=== PATIENT | male | born 1955 | race Caucasian/White ===

== ENCOUNTER 2019-10-23 15:01 | Outpatient (CLI) | payer BC, SELFPAY ==
--- NOTE | 2019-10-25 16:36 | WPDPFTINT ---
PFT Interpretation PFT Interpretation: DOS: 10/13/2019 REQUESTING: Tobias Merrill REASON FOR TESTING: COPD PULMONARY FUNCTION TESTS The patient difficulty getting acceptable and reproducible plethsmography results despite good coaching and effort Spirometry: Severely decreased FEV1 26% predicted, 0.76 L. FVC moderately reduced 61%. Decreased FEV1% consistent with airflow obstruction. There is an excellent response to bronchodilator with a 28% increase in FEV1 which was greater than 200 ml. Lung volumes: TLC 249% severe hyperinflation. Residual volume severely increased 553%. Airway resistance increased 502%. Diffusion: DLCO moderately decreased 43%.. Flow volume loop: Extreme scooping of the expiratory limb IMPRESSION: This pattern is consistent with severe emphysema with good response to bronchodilator. Kyra Reed MD
== END 2019-10-23 15:02 | disposition home or self-care (01) ==
PROVIDERS: PCP Family Medicine; Visit Provider Internal Medicine Critical Care Medicine
DX: J44.9 Chronic obstructive pulmonary disease, unspecified (principal); R94.2 Abnormal results of pulmonary function studies
CPT/HCPCS: 94060; 94726; 94729

== ENCOUNTER 2020-07-04 15:00 | Outpatient (CLI) | payer BC, SELFPAY ==
--- NOTE | ~2020-07-04 | CT_ITS ---
EXAMINATION:CT diagnostic chest wo con DATE: 07/04/2020 15:30 INDICATION: Solitary pulmonary nodule. TECHNIQUE: Computed tomography (CT) of the chest was performed without intravenous contrast. Automate d exposure control and iterative reconstruction technique were employed. The dose-length product (DLP ) was 95.38 mGy-cm. COMPARISON: None. FINDINGS: There is severe emphysema. There is mild atelectasis bilaterally. There is a 6 mm nodule at left major fissure. There is a 4 mm nodule in right lower lobe. There is a 5 mm nodule in right uppe r lobe. No pleural effusion. The heart size is normal. There are coronary artery calcifications. No p ericardial effusion. There are no pathologically enlarged lymph nodes. There is mild bilateral gyneco mastia. There is a 1.4 cm mass in right adrenal gland measuring low-attenuation, consistent with an a denoma. There is mild thoracic spondylosis. IMPRESSION: 1. Pulmonary nodules measuring up to 6 mm, likely benign. 2. Severe emphysema. Reviewed, dictated and finalized at location A.
== END 2020-07-04 15:01 | disposition home or self-care (01) ==
PROVIDERS: PCP Family Medicine; Visit Provider Internal Medicine Critical Care Medicine
DX: R91.8 Other nonspecific abnormal finding of lung field (principal); J43.9 Emphysema, unspecified
CPT/HCPCS: 71250

== ENCOUNTER 2021-07-05 09:22 | Outpatient (CLI) | payer BC, SELFPAY ==
--- NOTE | ~2021-07-05 | CT_ITS ---
EXAMINATION: CT diagnostic chest wo con DATE: 07/05/2021 09:40 INDICATION: Solitary pulmonary nodule TECHNIQUE: Computed tomography (CT) of the chest was performed without intravenous contrast. The dose -length product (DLP) was 110.44 mGy-cm. Automated exposure control and iterative reconstruction tech [employer] were employed. COMPARISON: 07/04/2020 FINDINGS: There is severe emphysema. A previously described 4 mm nodule of the right lower lobe is no longer evident, consistent with resolved infection or inflammation. There is a stable 6 mm fissural nodule on the left. The lungs are free of acute opacities. There is no pleural effusion or pneumothor ax. No pathologically enlarged thoracic lymph nodes are identified. The heart size is normal. There i s calcified coronary artery atherosclerosis. A stable 1.4 cm low-attenuation mass of the right adrena l gland is consistent with an adenoma. There is mild thoracic spondylosis. IMPRESSION: 1. Resolved right lower lobe nodule, consistent with resolving infection/inflammation. No suspicious pulmonary nodule identified. 2. Severe emphysema. Reviewed, dictated and finalized at location A. IMPRESSION: 1. Resolved right lower lobe nodule, consistent with resolving infection/inflam mation. No suspicious pulmonary nodule identified. 2. Severe emphysema.
== END 2021-07-05 09:23 | disposition home or self-care (01) ==
PROVIDERS: PCP Family Medicine; Visit Provider Physician Assistant
DX: R91.1 Solitary pulmonary nodule (principal); J43.9 Emphysema, unspecified
CPT/HCPCS: 71250

== ENCOUNTER 2022-07-06 12:47 | Outpatient (CLI) | payer BC, SELFPAY ==
--- NOTE | ~2022-07-06 | CT_ITS ---
CT Scan of the Chest without Contrast: Clinical Indication: Lung cancer screening, personal history of nicotine dependence Technique: Contiguous sections were acquired throughout the chest without intravenous contrast. Dose reduction technique was used on this scan by utilizing automated exposure control and iterative recon struction technique. The dose-length product (DLP) was 151.90 mGy-cm. COMPARISON: 07/05/2021 and 07/04/2020 Findings: There is no evidence of any significant mediastinal, hilar or axillary lymphadenopathy. The mediastin al soft tissues appear normal. There is no evidence of pleural or pericardial effusion. The lungs are clear. No pulmonary nodules or infiltrates are noted. Severe pulmonary emphysema noted. Images through the upper abdomen reveal no abnormalities. Impression: Lung-RADS 1: Negative. 12 month follow-up screening CT advised. Severe emphysema. Reviewed, dictated and finalized at [facility]. Impression: Lung-RADS 1: Negative. 12 month follow-up screening CT advised. Severe emphysema.
== END 2022-07-06 12:48 | disposition home or self-care (01) ==
PROVIDERS: PCP Family Medicine; Visit Provider Physician Assistant
DX: Z12.2 Encounter for screening for malignant neoplasm of respiratory organs (principal); Z87.891 Personal history of nicotine dependence
CPT/HCPCS: 71271

== ENCOUNTER 2023-07-08 10:54 | Outpatient (CLI) | payer BC, SELFPAY ==
--- NOTE | ~2023-07-08 | CT_ITS ---
CT Scan of the Chest without Contrast: Clinical Indication: Lung cancer showing, nicotine dependence Technique: Contiguous sections were acquired throughout the chest without intravenous contrast. Dose reduction technique was used on this scan by utilizing automated exposure control and iterative recon struction technique. The dose-length product (DLP) was 152.50 mGy-cm. Findings: There is no evidence of any significant mediastinal, hilar or axillary lymphadenopathy. Coronary wilner ry calcifications are present. There is no evidence of pleural or pericardial effusion. 4 mm peripheral nodule noted in the left lower lobe. Probable 5 mm left upper lobe pulmonary nodule. Advanced emphysema noted. Images through the upper abdomen reveal no abnormalities. Impression: Lung RADS 2: Benign appearance. 12 month follow-up screening CT advised. Advanced emphysema. Reviewed, dictated and finalized at [facility]. Impression: Lung RADS 2: Benign appearance. 12 month follow-up screening CT advised. Advanced emphysema.
== END 2023-07-08 10:55 | disposition home or self-care (01) ==
LOC: ANHIMG 10:55
PROVIDERS: PCP Family Medicine; Visit Provider Physician Assistant
DX: Z12.2 Encounter for screening for malignant neoplasm of respiratory organs (principal); Z87.891 Personal history of nicotine dependence; J43.9 Emphysema, unspecified
CPT/HCPCS: 71271

== ENCOUNTER 2024-07-09 08:09 | Outpatient (CLI) | payer MEDICARE, SELFPAY ==
--- NOTE | ~2024-07-09 | CT_ITS ---
CT Scan of the Chest without Contrast: Clinical Indication: Lung cancer screening, nicotine dependence Technique: Contiguous sections were acquired throughout the chest without intravenous contrast. Dose reduction technique was used on this scan by utilizing automated exposure control and iterative recon struction technique. The dose-length product (DLP) was 133.23 mGy-cm. COMPARISON: 07/08/2023 Findings: There is no evidence of any significant mediastinal, hilar or axillary lymphadenopathy. The mediastin al soft tissues appear normal. There is no evidence of pleural or pericardial effusion. There is advanced emphysema. Stable 4 mm peripheral nodule left lower lobe (axial image 78). Stable 3 mm of the upper lobe nodule (axial image 53). Images through the upper abdomen reveal stable right adrenal adenoma. Impression: Lung RADS 2: Benign appearance. [address] advised. Advanced emphysema. Reviewed, dictated and finalized at [facility]. Impression: Lung RADS 2: Benign appearance. [address] advised. Advanced emphysema.
--- OUTSIDE RECORDS SUMMARY | 2024-07-09 08:18 | XMS_ITS | Clinical Summary ---
Author Organization [facility] [address] [place] [address] [place] [id number] Care Team Providers Care Superintendent Maintenance Name Role Phone Nikhil Talley MD Primary Care Provider [phone] Allergies No known active allergies Medications fluticasone propionate (FLONASE) 50 mcg/actuation nasal spray Administer 2 sprays into each nostril daily 3 each 1 1 Active aspirin 81 mg enteric coated tablet Take 1 tablet (81 mg total) by mouth daily Active Breztri Aerosphere 160-9-4.8 mcg/actuation HFA aerosol inhaler 2 puffs 2 (two) times a day 2 Active lisinopril-hydroC HLOROthiazide (ZESTORETIC) 20-25 mg per tabletIndications :Essential hypertension Take 1 tablet by mouth daily 90 tablet 3 2 Active albuterol HFA (PROVENTIL HFA,VENTOLIN HFA,PROAIR HFA) 90 mcg/actuation inhalerIndication s:Centrilobular emphysema (HCC) Inhale 2 puffs every 4 (four) hours as needed for shortness of breath 3 each 4 3 Active ipratropium (ATROVENT) 42 mcg (0.06 %) nasal spray SPRAY 2 SPRAYS IN EACH NOSTRIL THREE TIMES A DAY NEEDED FOR ALLERGY SYMPTOMS FOR 1 MONTH 3 Active tadalafiL (CIALIS) 5 mg tabletIndications :Elevated PSA Take 1 tablet (5 mg total) by mouth daily 90 tablet 1 3 Active Active Problems Problem Noted Date Diagnosed Date Chronic rhinitis 06/05/2023 Purulent postnasal drainage 06/05/2023 History of right mastoidectomy 06/05/2023 Elevated PSA 04/22/2022 COLE (generalized anxiety disorder) 03/13/2022 COVID-19 03/28/2021 Mixed conductive and sensori neural hearing loss of right ear with restricted hearing of left ear 07/21/2020 Chronic obstructive pulmonary disease 05/19/2020 Essential hypertension 05/19/2020 Chronic allergic rhinitis due to pollen 09/24/19 18 Conductive hearing loss, bilateral 09/23/2017 Immunizations Immunization Administration Dates Next Due Influenza, Quadrivalent, Hig h Dose, Preservative Free, Intrr 01/02/2022 Influenza, Quadrivalent, Spl it, Preservative Free, Intramuscular 05/16/2020 Pfizer SARS-CoV-2 Monovalent Vaccination (12+ Yrs) PURPLE 07/13/2021 Tdap 09/16/2015 Surgical History Surgery Date Site/Laterality Comments EAR SURGERY MASTOIDECTOMY Medical History Medical History Date Comments Hypertension COPD (chronic obstructive pulmonary disease) (HC C) Mastoiditis Covid-19 Family History Medical History Relation Name Comments No Known Problems Daughter 1 No Known Problems Daughter 2 Cancer Father Hypertension Father Hypertension Mother No Known Problems Son 1 No Known Problems Son 2 Relation Name Status Comments Brother Alive Daughter 1 Alive Daughter 2 Alive Father Mother Sister 1 Alive Sister 2 Alive Son 1 Alive Son 2 Alive Social History Tobacco Use Types Packs/Day Years Used Date Smoking Tobacco: Former Cigarettes Q uit: 09/08/2015 Smokeless Tobacco: Never Tobacco Cessation:Counseling Given: Not Answered AUDIT-C Answer Date Recorded Q1: How often do you have a drink containing alc ohol? Never 02/04/2024 Average Number of Drinks Not on file 024 Frequency of Binge Drinking Not on file 01/23 PHQ-2 Answer Date Recorded PHQ-2 Total Score (If total score is 3 or more points, staff should administer the PHQ-9) 0 03/13/2022 Sex and Gender Information Value Date Recorded Sex Assigned at Not on file Legal Sex Male 12:35 AM DELIVERY CREW WORKER Gender Identity Male 12/18/2023 11:56 AM CDT Sexual Orientation Straight 12/18/2023 11 :56 AM CDT Obstetrics History Last Filed Vital Signs Vital Sign Reading Time Taken Comments Blood Pressure 112/76 02/04/2024 1:54 PM DELIVERY CREW WORKER Pulse 86 02/04/2024 1:54 PM DELIVERY CREW WORKER Temperature 36.5 C (97.7 F) 02/04/2024 1:54 PM DELIVERY CREW WORKER Respiratory Rate 18 06/05/2023 1:00 PM CDT Oxygen Saturation 95% 04/10/2022 5:09 PM DELIVERY CREW WORKER Inhaled Oxygen Concentration - - Weight 81.6 kg (180 lb) 02/04/2024 1:54 PM DELIVERY CREW WORKER Height 170.2 cm (5' 7 ) 02/04/2024 1:54 PM DELIVERY CREW WORKER Body Mass Index 28.19 02/04/2024 1:54 PM DELIVERY CREW WORKER Plan of Treatment Health Maintenance Due Date Last Done Comments Fall Risk Assessment 1955 Hepatitis B Screening 1974 Pneumococcal vaccine 65+ (1 of 2 - PCV) 12/22/1975 Zoster Vaccine (1 of 2) 2006 Abdominal Aortic Aneurysm (A AA) Screen 2021 Well Visit 65+ 2021 Depression Screening 03/13/2023 03/13/2022, 11/14/2020, 09/07/2020, Additional history exists Covid-19 Vaccine (2023-2 5 season) 2023 12/22/2021, 07/13/2021, 07/13/2021, Additional history exists Colon Cancer Screening-DNA Stool 12/03/2023 12/03/19, 10/05/2020 Influenza Vaccine (Season Ended) 2024 01/03/20 22, 05/16/2020 Prostate Cancer Screening-PSA 12/10/2024, 03/20/2022, 06/02/2020 DTaP/Tdap/Td Vaccine (2 - Td or Tdap) 09/15/2025 09/16/2015 Hepatitis C Screening Completed 06/02/2020 Colon Cancer Screening-Colonoscopy Discontinued 12/02/2020 Procedures Procedure Name Priority Date/Time Associated Diagnosis Comments PSA SCREEN Routine 12/10/2022 7:44 AM CDT Elevated PSA HM COLONOSCOPY Routine 12/02/2020 HEPATITIS C ANTIBODY Routine 06/02/2020 10:00 AM DELIVERY CREW WORKER Need for hepatitis C screening test from Last 3 Months or Most Recently Relevant to Health Maintenance Results * PSA screen (12/10/2022 7:44 AM CDT) Pathologist [facility] [place] PSA 2.07 < OR = 4.00 ng/mL [facility] Comment: The total PSA value from this assay system is standardized against the WHO standard. The test result will be approximately 20% lower when compared to the equimolar-standardized total PSA (Susana Joanne). Comparison of serial PSA results should be interpreted with this fact in mind. This test was performed using the Siemens chemiluminescent method. Values obtained from different assay methods cannot be used interchangeably. PSA levels, regardless of value, should not be interpreted as absolute evidence of the presence or absence of disease. Blood 12/10/2022 7:44 AM CDT 12/10/2022 7:44 AM CDT Derek Brock MD LAB BLOOD ORDERABLES Final Resu lt [facility] [address] [place] [address] * COLONOSCOPY (12/02/2020) Pathologist [facility] [place] Scribed Colonoscopy Normal [facility] Provider HEALTH MAINTENANCE Final Result * Hepatitis C antibody (06/02/2020 10:00 AM DELIVERY CREW WORKER) [facility] Hep C Ab NONREACT NONREACTIVE [facility] Comment: Siemens NovavaxaurXP using WANDA (chemiluminescent immunoassay) technology. NONREACTIVE: Antibodies to Hepatitis C not detected. This does not exclude early acute Hepatitis C infection, possibility of exposure to Hepatitis C, antibodies below detection limit, or to lack of antibody reactivity to the antigen used in this assay. EQUIVOCAL: Antibodies to Hepatitis C may or may not be present. Sample to be confirmed by real-time PCR method. REACTIVE: Antibodies to Hepatitis C detected.Sample to be confirmed by real-time PCR method. Blood specimen (specimen) 06/02/2020 10:00 AM DELIVERY CREW WORKER 06/02/2020 11:41 AM DELIVERY CREW WORKER Narrative Resulting Agency Comment CLI Padmin[facility] MICROBIOLOGY - [facility] RAL ORDERABLES Final Result [facility] [id number] [place] [address], [place] [phone] from Last 3 Months or Most Recently Relevant to Health Maintenance Insurance MEDICARE [facility] MEDICARE BLUE [facility] OOS [facility] MEDICARE Care Teams Superintendent Maintenance Relationship Specialty Start Date End Date Nikhil Talley MD PCP - General Family Medicine 05/23/23
--- OUTSIDE RECORDS SUMMARY | 2024-07-09 08:18 | XMS_ITS | Referral Summary ---
Author Organization [facility] [address] [place] [address] [place] [id number] Care Team Providers Care Human Factors Scientist Name Role Phone Nikhil Talley MD Primary Care Provider [phone] Allergies No known active allergies Medications fluticasone [...] Vaccination (12+ Yrs) PURPLE 07/13/2021 Tdap 09/16/2015 Social History Tobacco Use Types Packs/Day Years Used Date Smoking Tobacco: Former Cigarettes Q uit: 09/08/2015 Smokeless Tobacco: Never Tobacco Cessation:Counseling Given: Not Answered AUDIT-C Answer Date Recorded Q1: How often do you have a drink containing alc ohol? Never 02/04/2024 Average Number of Drinks Not on file Frequency of Binge Drinking Not on file 01/23 PHQ-2 Answer Date Recorded PHQ-2 Total Score (If total score is 3 or more points, staff should administer the PHQ-9) 0 03/13/2022 Sex and Gender Information Value Date Recorded Sex Assigned at Not on file Legal Sex Male 12:35 AM ENT PHYSICIAN Gender Identity Male 12/18/2023 11:56 AM CDT Sexual Orientation Straight 12/18/2023 11 :56 AM CDT Last Filed Vital Signs Vital Sign Reading Time Taken Comments Blood Pressure 112/76 02/04/2024 1:54 PM ENT PHYSICIAN Pulse 86 02/04/2024 1:54 PM ENT PHYSICIAN Temperature 36.5 C (97.7 F) 02/04/2024 1:54 PM ENT PHYSICIAN Respiratory Rate 18 06/05/2023 1:00 PM CDT Oxygen Saturation 95% 04/10/2022 5:09 PM ENT PHYSICIAN Inhaled Oxygen Concentration - - Weight 81.6 kg (180 lb) 02/04/2024 1:54 PM ENT PHYSICIAN Height 170.2 cm (5' 7 ) 02/04/2024 1:54 PM ENT PHYSICIAN Body Mass Index 28.19 02/04/2024 1:54 PM ENT PHYSICIAN Plan of Treatment Not on file Procedures Procedure Name Priority Date/Time Associated Diagnosis Comments PSA SCREEN Routine 12/10/2022 7:44 AM CDT Elevated PSA HM COLONOSCOPY Routine 12/02/2020 HEPATITIS C ANTIBODY Routine 06/02/2020 10:00 AM ENT PHYSICIAN Need for hepatitis C screening test from Last 3 Months or Most Recently Relevant to Health Maintenance Results * PSA screen (12/10/2022 7:44 AM CDT) Pathologist [facility] PSA 2.07 < OR = 4.00 ng/mL [facility] Comment: The total PSA value from [...] LAB BLOOD ORDERABLES Final Resu lt [facility] [address] [place] [address] * COLONOSCOPY (12/02/2020) Pathologist [facility] Scribed Colonoscopy Normal [facility] Provider HEALTH MAINTENANCE Final Result * Hepatitis C antibody (06/02/2020 10:00 AM ENT PHYSICIAN) [facility] Hep C Ab NONREACT NONREACTIVE [facility] Comment: Siemens CentaurXP using WANDA (chemiluminescent immunoassay) technology. NONREACTIVE: Antibodies [...] method. Blood specimen (specimen) 06/02/2020 10:00 AM ENT PHYSICIAN 06/02/2020 11:41 AM ENT PHYSICIAN Narrative Resulting Agency Comment CLI Padmin[facility] MICROBIOLOGY - GENE RAL ORDERABLES Final Result [facility] [address] [place] [id number] [place] [address] from Last 3 Months or Most Recently Relevant to Health Maintenance Insurance MEDICARE [facility] OOS MEDICARE [facility] MEDICARE Care Teams Human Factors Scientist Relationship Specialty Start Date End Date Nikhil Talley MD PCP - General Family Medicine 05/23/23
--- OUTSIDE RECORDS SUMMARY | 2024-07-09 08:18 | XMS_ITS | Clinical Summary ---
Author Organization [facility] Address [address] [place] [id number] Care Team Providers Care Emu Farmer Name Role Phone Lincoln Corral MD Primary Care Provider Allergies No known active allergies Medications PROAIR HFA 108 (90 Base) MCG/ACT inhaler Take 2 puffs by mouth every 4 (four) hours as needed. 05/12/2020 Active FLOVENT HFA 220 MCG/ACT inhaler Take 1 puff by mouth 2 (two) times a day. 04/30/2020 Active STIOLTO RESPIMAT 2.5-2.5 MCG/ACT inhaler Take 2 puffs by mouth daily. 02/28/2020 Active Active Problems No known active problems Resolved Problems Problem Noted Date Diagnosed Date Resolved Date CAP (community acquired pneumonia) 05/14/2020 05/16/2020 Immunizations Immunization Administration Dates Next Due Fluzone 6 Months+ Quad (0.5 mL Prefilled Syringe ) 05/16/2020 Social History Tobacco Use Types Packs/Day Years Used Date Smoking Tobacco: Former Smokeless Tobacco: Never Alcohol Use Standard Drinks/Week Comments Not Currently 0 (1 standard drink = 0.6 oz pur e alcohol) AUDIT-C Answer Date Recorded Q1: How often do you have a drink containing alc ohol? Never 05/14/2020 Average Number of Drinks Not on file 021 Frequency of Binge Drinking Not on file 04/26 Sex and Gender Information Value Date Recorded Sex Assigned at Not on file Legal Sex Male 4:05 PM CDT Gender Identity Not on file Sexual Orientation Not on file Last Filed Vital Signs Vital Sign Reading Time Taken Comments Blood Pressure 121/83 05/16/2020 4:39 AM LAWNMOWER MECHANIC Pulse 84 05/16/2020 4:39 AM LAWNMOWER MECHANIC Temperature 37.1 C (98.8 F) 05/16/2020 4:39 AM LAWNMOWER MECHANIC Respiratory Rate 18 05/16/2020 4:39 AM LAWNMOWER MECHANIC Oxygen Saturation 93% 05/16/2020 9:45 AM LAWNMOWER MECHANIC Inhaled Oxygen Concentration - - Weight 74.1 kg (163 lb 5.8 oz) 05/16/2020 4:39 A M LAWNMOWER MECHANIC Height 170.2 cm (5' 7 ) 05/16/2020 4:39 AM LAWNMOWER MECHANIC Body Mass Index 25.59 05/16/2020 4:39 AM LAWNMOWER MECHANIC Plan of Treatment Health Maintenance Due Date Last Done Comments Colorectal Cancer Screening Colonoscopy (10 Years) 1955 Hepatitis C 1974 DTaP, Tdap and Td Vaccines ( 1 - Tdap) 12/22/1975 Pneumococcal Vaccine: 50+ Ye ars (1 of 1 - PCV) 2006 Zoster Vaccines (1 of 2) 2006 COVID-19 Vaccine (1 - 2023-2 5 season) 2023 RSV Immunization or 60+ Years (1 - 1-dose 75+ series) 12/22/2031 Meningococcal B Vaccine Aged Out No l onger eligible based on patient's age to complete this topic Meningococcal Vaccine Aged Out No stefan alex eligible based on patient's age to complete this topic RSV Immunizations Under 20 Months Aged Out No longer eligible based on patient's age to complete this topic Insurance Advance Directives * Full Code (Latest Code Status on File) Date Activated Date Inactivated Comments 05/15/2020 6:00 AM 05/16/2020 6:13 PM Care Teams Emu Farmer Relationship Specialty Start Date End Date Lincoln Corral MD [address] [place] [address] PCP - General FAMILY PRACTICE 05/14/20
== END 2024-07-09 08:10 | disposition home or self-care (01) ==
PROVIDERS: PCP Family Medicine; Visit Provider Physician Assistant
DX: Z12.2 Encounter for screening for malignant neoplasm of respiratory organs (principal); J43.9 Emphysema, unspecified; Z87.891 Personal history of nicotine dependence
CPT/HCPCS: 71271